=== PATIENT | male | born 1965 | race Caucasian/White ===

== ENCOUNTER → 2017-04-25 | Outpatient (CLI) | payer OTHER ==
[~2017-04-25] VITALS: Ht 184.2 cm; Wt 113.9 kg
[~2017-04-25] MED LIST: HYDROCHLOROTHIA25 MG PO; METHADONE PO; ONDANSETRON HCL4 MG PO; PROMETHAZINE12.5 M1 PO; PROTONIX40 MG PO; SIMVASTATIN40 MG PO; TRAMADOL HCL50 MG; TYLENOL REGULA325 MG PO
== END | disposition home or self-care (01) ==
LOC: AMB 09:48
PROC: 0DB68ZX Excision of Stomach, Via Natural or Artificial Opening Endoscopic, Diagnostic (ICD-10-PCS; principal; 2017-04-25)
DX: K29.70 Gastritis, unspecified, without bleeding (principal); K22.10 Ulcer of esophagus without bleeding; E53.8 Deficiency of other specified B group vitamins; K21.9 Gastro-esophageal reflux disease without esophagitis; Z88.0 Allergy status to penicillin; F17.200 Nicotine dependence, unspecified, uncomplicated
CPT/HCPCS: 84132; 88305; 88342 TC; 93005; J2250